=== PATIENT | female | born 2000 | race Caucasian/White ===

== ENCOUNTER 2021-01-02 14:47 | Emergency (ER) | payer SELFPAY ==
[2021-01-02 15:26] LABS: HEMOGLOBIN 15.6 gm/dl (12.3-15.3); RED BLOOD COUNT 4.9 M/UL (4.00-5.10); WHITE BLOOD COUNT 7.2 K/UL (4.5-11.0)
[2021-01-02 15:53] LABS: BUN/CREATININE RATIO 10 (0-10)
[2021-01-02] MEDS ORDERED: PEPCID20 MG PO (20:48)
[2021-01-02] MEDS ORDERED: ZOFRAN ODT 4 MG4 MG PO (20:48)
[2021-01-02] MEDS ORDERED: BENTYL 10MG CAP10 MG PO (20:48)
== END 2021-01-02 21:00 | disposition home or self-care (01) ==
LOC: ER1 14:47
PROVIDERS: Nurse Practitioner
DX: T78.1XXA Other adverse food reactions, not elsewhere classified, initial encounter (principal); R10.11 Right upper quadrant pain; R10.13 Epigastric pain; R07.9 Chest pain, unspecified
CPT/HCPCS: 36415; 80053; 81001; 83605; 83690; 84703; 85025; 93005; 96365; 96372; 96375; 99285; J0500; J2405; J7030; Q9967